=== PATIENT | male | born 1995 | race Caucasian/White ===

== ENCOUNTER 2017-01-15 06:56 | Emergency (ER) | payer SELFPAY ==
[~2017-01-15] VITALS: Ht 170.2 cm; Wt 68.7 kg
[2017-01-15 07:00] VITALS: TEMP 97.8; Ht 170.2 cm; Wt 68.7 kg
[2017-01-15] MEDS ORDERED: ORPHENADRINE 60mg/2ml INJECTION IM ONE (07:15)
[2017-01-15] MEDS ORDERED: KETOROLAC 60mg/2ml INJECTION IM ONE (07:15)
--- NOTE | 2017-01-15 07:16 | ERPDOC ---
Departure Disposition Decision Date: January 15, 2017 Disposition Decision Time: 08:27 Impression Impression Impression: Primary Impression: Hip pain, left Additional Impression: Hip pain, right Severity: Moderate Condition: Improved Referrals: YOUR PHYSICIAN 1 Week Patient Instructions: Hip Pain (ED) Problems/Meds/Labs Reviewed?: Yes Medications reviewed and manag: Yes Additional Instructions: You have been treated for your hip pain. Continue to take ibuprofen (800mg every 8 hours) or naproxen (500mg every 12 hours) as needed for pain, but do not exceed the maximum doses. Take the robaxin as needed for muscle spasms. Heat will help with your symptoms. Follow up with your doctor. Follow up care ordered?: Yes Mental Status: Alert, Oriented Scripts Methocarbamol (Robaxin) 500 Mg Tablet 500 MG PO Q6HPRN Y for SPASMS, #40 TAB Prov: DOUGLAS RAMOS DO 01/15/17 HPI - Lower Extremity General Chief Complaint: Lower Extremity Pain Stated Complaint: L HIP PAIN Time Seen by Provider: 07:06 Source: patient, EMS Exam Limitations: no limitations HPI - Lower Extremity Initial Comments 21yo man presented to the ER today for b/l hip pain. Pt states that he left [place] for [place] with some 'friends'; friends left pt in [place]. He has been walking back towards [place] where he is living with his aunt, but now has right and left hip pain. Pt has a h/o BP d/o, but does not take his meds ( occasionally smokes MJ). Has a h/o SI and attempted (jumped off a roof and broke his left hip previously), but denies SI/HI today. Takes ibuprofen 1200mg q12hr prn normally for pain. Has not had anything but ASA in the last 24-48hrs. Occurred At: other Onset/Timing: Gradual, Getting worse Duration: 12-24 hrs Pain/Severity Scale: Now & Worst: 8/10 Severity: moderate Pain/Injury Location: bilateral hip Method of Injury: other (Walking) Modifying Factors/Context: IMPROVES WITH: cold therapy, immobilization, pain medication, rest Hx of Similar Symptoms: Yes Quality: aching, throbbing Allergies: Coded Allergies: No Known Allergies (Unverified , 01/15/17) Past History Patient Medical History (1) Hip pain, right (2) Hip pain, left Past Medical History Psychological: bipolar, suicide attempt Social History Smoking Status: Current every day smoker Substance Use Type: marijuana Review of Systems Musculoskeletal General: joint pain All other Systems All Other Systems: Reviewed and Negative Physical Exam General General Nourishment: well nourished, well developed, appears stated age, no acute distress, adult, thin Vitals and Pain First Documented Vital Signs Date Time Temp Pulse Resp B/P Pulse Ox O2 Delivery O2 Flow Rate FiO2 01/15/17 07:00 97.8 67 17 125/65 99 Room Air Weight: Kilograms: Height (feet): Height (inches): Triage Pain Scale: Supervisory Exam Body Habitus: well groomed Head: atraumatic Eyes: PERRL Nares: no exudate Neck: trachea midline Chest: symmetric Abdomen: non-distended Musculoskeletal: no deformity or atrophy Neurological: no abnormal movements Skin: pink, dry Psychological: alert Differential Diagnoses Considering: Contusion, Dislocation, Fracture, Sprain, Strain Progress Results/Orders Orders Procedure Category Date Status Time Hip Left 2 View RAD 01/15/17 Taken 07:06 Hip Right 2 View RAD 01/15/17 Taken 07:11 Methocarbamol PHA 01/15/17 Complete (Robaxin) 07:45 Ibuprofen (Motrin) PHA 01/15/17 Complete 07:45 Medications Current ED Medications Ketorolac Tromethamine (Toradol) 60 mg O ONCE IM ; Start 01/15/17 at 07:15; Stop 01/15/17 at 07:16; Status Cancel Orphenadrine Citrate (Norflex) 60 mg O ONCE IM ; Start 01/15/17 at 07:15; Stop 01/15/17 at 07:16; Status Cancel Ibuprofen (Motrin) 800 mg O ONCE PO ; Start 01/15/17 at 07:45; Stop 01/15/17 at 07:46; Status Cancel Methocarbamol (Robaxin) 750 mg O ONCE PO Last administered on 01/15/17 08:08 ; Start 01/15/17 at 07:45; Stop 01/15/17 at 07:46; Status DC Ibuprofen (Motrin) 800 mg O ONCE PO Last administered on 01/15/17 08:08; Start 01/15/17 at 07:45; Stop 01/15/17 at 07:46; Status DC Progress Progress Pt scooped by [facility] after 911 call for hip pain; pt refused transport to [place]. He requested txfr to a hospital [place]'. No acute findings on plain films. Will treat pts pain and d/c. Medications given to pt. No other significant medical concerns at this time. Pt is not SI/HI. No evidence of acute psychosis/delusions/paranoia. Pt wants to continue walking to [place]; asks about routes/direction. No contraindications to d/c at this time; will d/c to continue his journey. Pt voiced understanding of dx, prognosis, tx, and f/u need. Xray Xray #1: Xray: Hip L Interpretation: Abnormal (Prior pelvic hardware; prior vascular coiling; prior pelvic fx.), Interpreted by Me Xray #2: Xray: Hip R Interpretation: Abnormal, Interpreted by Me (Prior pelvic hardware; prior vascular coiling; prior left pelvic fx.) DECEMBERDOUGLAS DO January 15, 2017 07:16
--- NOTE | 2017-01-15 07:22 | NUR ---
RADIOLOGY PT TO RADIOLOGY PER CART
--- NOTE | 2017-01-15 07:30 | NUR ---
RADIOLOGY PT FROM RADIOLOGY PER CART
[2017-01-15] MEDS ORDERED: IBUP-1724 PO (07:32)
--- NOTE | 2017-01-15 07:39 | NUR ---
MEDS WENT TO ADMINISTERE TORADOL AND NORFLEX AND PT REFUSED THE INJECTION AND REQUESTED PILLS. DR RAMOS NOTIFIED AND NEW ORDERS RECEIVED
[2017-01-15] MEDS ORDERED: METHOCARBAMOL 750 MG TABLET PO ONE (07:45)
[2017-01-15] MEDS ORDERED: IBUPROFEN 800 MG TABLET PO ONE ×2 (07:45)
[2017-01-15] MEDS ORDERED: METH500T PO (08:30)
[2017-01-15 08:35] VITALS: BP 122/66; PULSE 78; RESP 16; O2SAT 98
--- NOTE | 2017-01-15 08:35 | NUR ---
DISMISSAL DISMISSAL INSTRUCTIONS WITH RX FOR ROBAXIN. NO FURTHER QUESTIONS AT THIS TIME. PT LEFT DEPARTMENT AMBUALTORY
--- NOTE | 2017-01-15 09:52 | DI ---
Indication: ITS.REASON: HIP PAIN PROCEDURE: HIP RIGHT 2 VIEW: Encounter: Initial Comparison: None Findings: There is no acute fracture, dislocation or malalignment identified. Orthopedic hardware in the pelvis. Chronic left pubic rami deformities. Vascular coils. Right hip joint space is normal. Impression: No acute osseous abnormality. .
--- NOTE | 2017-01-15 09:52 | DI ---
Indication: ITS.REASON: hip pain PROCEDURE: HIP LEFT 2 VIEW: Encounter: Initial Comparison: None Findings: There is no acute fracture, dislocation or malalignment identified. Chronic posttraumatic deformities with orthopedic hardware across the left SI joint and vascular coils. Chronic deformity of the left superior and inferior pubic rami and acetabulum. Impression: No acute osseous abnormality. .
== END 2017-01-15 08:35 | disposition home or self-care (01) ==
LOC: ED 06:56
DX: M25.552 Pain in left hip (principal); M25.551 Pain in right hip